=== PATIENT | male | born 1980 | race Two or more races ===

== ENCOUNTER 2019-09-20 18:44 | Emergency (ER) | payer SELFPAY ==
[~2019-09-20] VITALS: Ht 165.1 cm; Wt 127.0 kg
[2019-09-20] MEDS ORDERED: ASPIRIN 325 MG TABLET PO ONE (19:00)
[2019-09-20] MEDS ORDERED: NITROGLYCERIN SUBLINGUAL 0.4 MG BOTTLE OF 25. SL PRN (19:00)
[2019-09-20 19:06] LABS: BASO # 0.1 x10^3/uL (0.0-0.2); BASO % 1 % (0-3); EOS # 0.7 x10^3/uL (0.0-0.7); EOS % 8 % (0-3); HEMATOCRIT 46.3 % (39.0-53.0); HEMOGLOBIN 15.9 g/dL (13.0-17.5); LYMPH # 2.9 x10^3/uL (1.0-4.8); LYMPH % 30 % (24-48); MEAN CORPUSCULAR HEMOGLOBIN 31 pg (25-35); MEAN CORPUSCULAR HGB CONC 34 g/dL (31-37); MEAN CORPUSCULAR VOLUME 90 fL (79-100); MONO # 0.8 x10^3/uL (0.0-1.1); MONO % 8 % (0-9); NEUT # 5.2 x10^3/uL (1.8-7.7); NEUT % 54 % (31-73); PLATELET COUNT 219 x10^3/uL (140-400); RED BLOOD COUNT 5.13 x10^6/uL (4.30-5.70); RED CELL DISTRIBUTION WIDTH 12.6 % (11.5-14.5); WHITE BLOOD COUNT 9.6 x10^3/uL (4.0-11.0)
--- NOTE | 2019-09-20 19:13 | PHYS DOC ---
General Adult EDM: Chief Complaint: CHEST PAIN HPI: HPI: Patient is a 39 year old Citizen Of [place]-speaking male patient who presents to the ED today complaining of 5 out of 10 substernal chest pain nonradiating in nature described as sharp and intermittent that has been going on for 6 months. Patient states his head feels heavy whenever this pain occurs, he states he does not know if it is nerves or not. Denies anything specifically exacerbating or relieving the pain. Denies any fever, coughing or congestion. Roll Forming Machine Set Up Operator line was used for Citizen [place] Review of Systems: Review of Systems: Constitutional: Denies fever or chills. [] Eyes: Denies change in visual acuity. [] HENT: Denies nasal congestion or sore throat. [] Respiratory: Denies cough or shortness of breath. [] Cardiovascular: Reports chest pain GI: Denies abdominal pain, nausea, vomiting, bloody stools or diarrhea. [] : Denies dysuria. [] Musculoskeletal: Denies back pain or joint pain. [] Integument: Denies rash. [] Neurologic: Denies headache, focal weakness or sensory changes. [] Endocrine: Denies polyuria or polydipsia. [] Psychiatric: Denies depression or anxiety. [] Heart Score: HEART Score for Chest Pain: HEART Score for Chest Pain Response (Comments) Value History Slighlty/Non-Suspicious 0 ECG Normal 0 Age < 45 0 Risk Factors No Risk Factors 0 Troponin < Normal Limit 0 Total 0 Risk Factors: Risk Factors: DM, Current or recent (<one month) smoker, HTN, HLP, family history of CAD, obesity. Risk Scores: Score 0 - 3: 2.5% MACE over next 6 weeks - Discharge Home Score 4 - 6: 20.3% MACE over next 6 weeks - Admit for Clinical Observation Score 7 - 10: 72.7% MACE over next 6 weeks - Early Invasive Strategies Current Medications: Current Medications Medications (Trade) Dose Ordered Sig/Ladi Start Time Stop Time Status Last Admin Dose Admin Aspirin (Marilyn Aspirin) 325 mg 1X ONCE 09/20/19 19:00 09/20/19 19:01 DC Nitroglycerin (Nitrostat) 0.4 mg PRN Q5MIN PRN 09/20/19 19:00 09/21/19 18:59 Allergies: Allergies: Allergies Coded Allergies Type Severity Reaction Last Updated Verified No Known Drug Allergies 09/20/19 No Physical Exam: PE: Constitutional: Over weight patient, no acute distress, non-toxic appearance. [] HENT: Normocephalic, atraumatic, bilateral external ears normal, oropharynx moist, no oral exudates, nose normal. [] Eyes: PERRLA, EOMI, conjunctiva normal, no discharge. [] Neck: Normal range of motion, no tenderness, supple, no stridor. [] Cardiovascular:Heart rate regular rhythm, no murmur [] Lungs & Thorax: Bilateral breath sounds clear to auscultation [] Abdomen: Bowel sounds normal, soft, no tenderness, no masses, no pulsatile masses. [] Skin: Warm, dry, no erythema, no rash. [] Back: No tenderness, no CVA tenderness. [] Extremities: No tenderness, no cyanosis, no clubbing, ROM intact, no edema. [] Neurologic: Alert and oriented X 3, normal motor function, normal sensory function, no focal deficits noted. [] Psychologic: Affect normal, judgement normal, mood normal. [] EKG: EKG: [] Radiology/Procedures: Radiology/Procedures: []PROCEDURE: PORTABLE CHEST 1V PORTABLE CHEST 1V History: Chest pain Comparison: None. Findings: Single view of the chest is submitted. There is no lobar consolidation, pleural fluid, or pneumothorax. There is linear opacity at the medial left lung base likely atelectasis. Heart size is upper limits of normal. Impression: 1. There is likely medial left lung base atelectasis. Electronically signed by: Jose Wilde MD (09/20/2019 7:27 PM) [facility] DICTATED and SIGNED BY: JOSE WILDE MD DATE: 09/20/191926 PROCEDURE: ABDOMEN LTD ABDOMEN LTD History: Chest pain Comparison: None. Findings: Multiple sonographic images of the abdomen are submitted. There is poor penetration of the liver parenchyma, diffuse hepatic echogenicity. Right lobe of the liver measured 20.2 cm longitudinal. Gallbladder is somewhat contracted without obvious intraluminal abnormality or pericholecystic fluid. Common bile duct is within normal limits at 0.4 cm. Right kidney measured 12.6 x 5.7 x 5.7 cm, no hydronephrosis. Inferior vena cava is not well visualized on this exam. Pancreas is not well-visualized. Impression: 1. There is diffuse hepatic steatosis and hepatomegaly. 2. There is nonspecific contracted appearance of the gallbladder without demonstrable intraluminal abnormality. Electronically signed by: Jose Wilde MD (09/20/2019 8:23 PM) [facility] DICTATED and SIGNED BY: JOSE WILDE MD DATE: 09/20/192022 Course & Med Decision Making: Course & Med Decision Making Pertinent Labs and Imaging studies reviewed. (See chart for details) This is an obese 39-year-old male patient presenting to the ED today complaining of substernal chest pain nonradiating in nature, symptoms have been going on intermittently for 6 months. EKg is negative, troponin is normal. CBC, with no acute findings. CMP with AST of 51, ALT of 125, ALK of 127. CK 404. Chest x-ray is negative, right upper quadrant limited ultrasound is negative. Patient was given IV fluids. Discharged home. Follow-up with primary care doctor and mechanical planner. Yan Disclaimer: Yan Disclaimer: This electronic medical record was generated, in whole or in part, using a voice recognition dictation system. Departure Departure Impression: Primary Impression: Chest pain Qualified Codes: R07.9 - Chest pain, unspecified Additional Impression: Transaminitis Disposition: HOME, SELF-CARE Condition: STABLE Referrals: MORGAN SMITH MD Follow-up in 1 week Patient Instructions: Chest Pain (Nonspecific), Ahst-[id number]-Ctse Additional Instructions: You were evaluated in the emergency room for chest pain, we could not find any acute cause for your pain. We highly recommend you follow-up with a mechanical planner provided. You can take [id number] pain relievers aspirin or Tylenol as needed for pain. ROMAN MCCONNELL WAREHOUSE SHIFT SUPERVISOR Sep 20, 2019 19:13
[2019-09-20 19:18] LABS: CALCIUM 9.1 mg/dL (8.5-10.1); GFR 82.8; POTASSIUM 3.6 mmol/L (3.5-5.1)
[2019-09-20 19:24] LABS: ALBUMIN 3.9 g/dL (3.4-5.0); ALBUMIN/GLOBULIN RATIO 1.1 (1.0-1.7); MAGNESIUM 1.9 mg/dL (1.8-2.4); TOTAL BILIRUBIN 0.4 mg/dL (0.2-1.0); TOTAL PROTEIN 7.4 g/dL (6.4-8.2)
--- NOTE | 2019-09-20 19:30 | RAD ---
PORTABLE CHEST 1V History: Chest pain Comparison: None. Findings: Single view of the chest is submitted. There is no lobar consolidation, pleural fluid, or pneumothorax. There is linear opacity at the medial left lung base likely atelectasis. Heart size is upper limits of normal. Impression: 1. There is likely medial left lung base atelectasis. Electronically signed by: Jamaal Clarke MD (09/20/2019 7:27 PM) [facility]
[2019-09-20 19:36] LABS: BARBITURATES NEG (NEG); BENZODIAZEPINES NEG (NEG); CANNABINOIDS NEG (NEG); COCAINE NEG (NEG); METHADONE NEG (NEG); OPIATES NEG (NEG); PHENCYCLIDINE NEG (NEG)
[2019-09-20 19:37] LABS: AMPHETAMINE/METHAMPHETAMINE NEG (NEG)
[2019-09-20] MEDS ORDERED: IV NORMAL SALINE 1000ML BAG 1,000 ML IV ONE (19:45)
[2019-09-20 20:22] VITALS: BP 130/59
--- NOTE | 2019-09-20 20:26 | RAD ---
ABDOMEN LTD History: Chest pain Comparison: None. Findings: Multiple sonographic images of the abdomen are submitted. There is poor penetration of the liver parenchyma, diffuse hepatic echogenicity. Right lobe of the liver measured 20.2 cm longitudinal. Gallbladder is somewhat contracted without obvious intraluminal abnormality or pericholecystic fluid. Common bile duct is within normal limits at 0.4 cm. Right kidney measured 12.6 x 5.7 x 5.7 cm, no hydronephrosis. Inferior vena cava is not well visualized on this exam. Pancreas is not well-visualized. Impression: 1. There is diffuse hepatic steatosis and hepatomegaly. 2. There is nonspecific contracted appearance of the gallbladder without demonstrable intraluminal abnormality. Electronically signed by: Jamaal Clarke MD (09/20/2019 8:23 PM) [facility]
--- NOTE | 2019-09-21 06:33 | EKG ---
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
== END 2019-09-20 21:06 | disposition home or self-care (01) ==
LOC: ER 18:44
DX: R07.2 Precordial pain (principal); R74.0 Nonspecific elevation of levels of transaminase and lactic acid dehydrogenase [LDH]
CPT/HCPCS: 36415; 71045; 76705; 80053; 80307; 82553; 83735; 83880; 84443; 84484; 85025; 93005; 99285; J7030